=== PATIENT | female | born 1955 | race Two or more races ===

== ENCOUNTER 2024-06-11 15:00 | Inpatient (IN) | payer MEDICARE, OTHER ==
[~2024-06-11] VITALS: Ht 167.6 cm; Wt 101.2 kg
[2024-06-11] MEDS ORDERED: CHOL2000 PO (15:15)
[2024-06-11] MEDS ORDERED: ASCO500C18 PO (15:15)
[2024-06-11] MEDS ORDERED: LACT10SO58 PO (15:15)
[2024-06-11] MEDS ORDERED: HYDR-4209 PO (15:15)
[2024-06-11] MEDS ORDERED: MECL-159 PO (15:15)
[2024-06-11] MEDS ORDERED: ESOM40CA PO (15:15)
[2024-06-11] MEDS ORDERED: BUPR-319 PO (15:15)
[2024-06-11] MEDS ORDERED: MAG-151 PO (15:15)
[2024-06-11] MEDS ORDERED: OLAN20TA24 PO (15:15)
[2024-06-11] MEDS ORDERED: [UNRECOGNIZED DRUG - CODE] PO (15:15)
[2024-06-11] MEDS ORDERED: ACET325C7 PO (15:15)
[2024-06-11] MEDS ORDERED: IBUP-2314 PO (15:15)
[2024-06-11] MEDS ORDERED: CLOB15CR4 TP (15:15)
[2024-06-11] MEDS ORDERED: SENN-170 PO (15:15)
[2024-06-11] MEDS ORDERED: SERT100T PO (15:15)
[2024-06-11 16:01] LABS: BASOPHILS % (AUTO) 0.4 % (0.0-2.0); EOSINOPHILS # (AUTO) 0.2 K/uL (0.0-0.7); EOSINOPHILS % (AUTO) 3.3 % (0.0-7.0); HEMATOCRIT 38.9 % (31.2-41.9); HEMOGLOBIN 12.6 g/dL (10.9-14.3); LYMPHOCYTES # (AUTO) 0.7 K/uL (0.8-4.8); LYMPHOCYTES % (AUTO) 12.6 % (20.5-51.5); MEAN CORPUSCULAR HEMOGLOBIN 27.3 uug (24.7-32.8); MEAN CORPUSCULAR HGB CONC 32 g/dL (32.3-35.6); MEAN CORPUSCULAR VOLUME 84.1 fL (75.5-95.3); MONOCYTES # (AUTO) 0.5 K/uL (0.1-1.30); MONOCYTES % (AUTO) 8.7 % (0.0-11.0); NEUTROPHILS # (AUTO) 4.3 K/uL (1.8-8.9); PLATELET COUNT (AUTO) 174 K/uL (179-408); RED BLOOD CELL COUNT(AUTO) 4.63 MIL/uL (3.63-4.92); RED CELL DISTRIBUTION WIDTH 14.2 % (12.3-17.7); WHITE BLOOD COUNT (AUTO) 5.8 K/uL (3.8-11.8)
[2024-06-11 16:08] LABS: DIFFERENTIAL COMMENT 1
[2024-06-11 16:09] LABS: CARBON DIOXIDE 28 mmol/L (21-32); CHLORIDE 107 mmol/L (98-107); CREATININE 1.1 mg/dL (0.6-1.3); GLUCOSE 80 mg/dL (74-106); POTASSIUM 4.2 mmol/L (3.5-5.1); SODIUM SERUM 142 mmol/L (136-145); UREA NITROGEN, BLOOD 12 mg/dL (7-18)
[2024-06-11 16:14] LABS: ALANINE AMINOTRANSFERASE 43 U/L (14-59); ALBUMIN 3.5 g/dL (3.4-5.0); ALKALINE PHOSPHATASE 87 U/L (50-136); ASPARTATE AMINOTRANSFERASE 29 U/L (15-37); BILIRUBIN,DIRECT 0.2 mg/dL (0.0-0.2); BILIRUBIN,TOTAL 0.4 mg/dL (0.2-1.0); TOTAL PROTEIN, SERUM 7.4 g/dL (6.4-8.2)
[2024-06-11 16:17] LABS: ACETAMINOPHEN < 2.0 ug/mL (10-30); ETHANOL < 3 MG/DL (0-10)
[2024-06-11 17:15] LABS: *BILIRUBIN,URIN NEGATIVE (NEGATIVE); *BLOOD, URINE NEGATIVE (NEGATIVE); *COLOR,URINE YELLOW (YELLOW); *KETONES,URINE NEGATIVE (NEGATIVE); *PROTEIN,URINE NEGATIVE (NEGATIVE); LEUKOCYTE ESTERASE ,URINE 1+ (NEGATIVE); NITRITE, URINE POSITIVE (NEGATIVE); PH,URINE 7.5 (5.0-8.0); UGLUCOSE NEGATIVE (NEGATIVE)
[2024-06-11 17:29] LABS: *CLARITY,URINE SLIGHTLY CLOUDY (CLEAR)
[2024-06-11] MEDS ORDERED: Medication Not On Formulary EA (Acetaminophen (Tylenol) 650 MG) PO SCH (17:30)
[2024-06-11] MEDS ORDERED: HYDROCODONE/APAP 5-325MG TABLET PO PRN ×2 (17:30→21:15)
[2024-06-11 17:31] LABS: BACTERIA,URINE MODERATE /HPF (NONE SEEN); RBC,URINE NONE SEEN /HPF (0-3); SQUAMOUS EPITHELIAL CELL,UR FEW /HPF (NONE SEEN); URINE AMORPHOUS PHOSPHATES MANY /HPF; WBC,URINE 0-3 /HPF (0-3)
[2024-06-11 17:36] LABS: *AMPHETAMINE, URINE NEGATIVE (NEGATIVE); *BARBITURATE, URINE NEGATIVE (NEGATIVE); *BENZODIAZEPINE, URINE NEGATIVE (NEGATIVE); *CANNABINOID, URINE NEGATIVE (NEGATIVE); *COCCAINE, URINE NEGATIVE (NEGATIVE); *OPIATE, URINE NEGATIVE (NEGATIVE); *PHENCYCLIDINE SCREEN,URINE NEGATIVE (NEGATIVE); FENTANYL, URINE NEGATIVE (NEGATIVE)
[2024-06-11 21:15] VITALS: BP 152/73; TEMP 97.5; O2SAT 94
[2024-06-11] MEDS ORDERED: MAG HYDROX/AL HYDROX/SIMETH 30 ML LIQUID UDC PO PRN (22:15)
[2024-06-11] MEDS ORDERED: LORAZEPAM 1 MG TABLET PO PRN ×2 (22:15)
[2024-06-11] MEDS ORDERED: MAGNESIUM HYDROXIDE 30 ML LIQUID UDC PO PRN (22:15)
[2024-06-11] MEDS: BLOOD SUGAR DIAGNOSTIC 1 EACH STRIP VI ONE (22:22)
[2024-06-11] MEDS ORDERED: LACTULOSE 20 G/30 ML LIQUID UDC PO PRN (22:30)
[2024-06-11] MEDS: TEMAZEPAM 7.5 MG CAPSULE PO PRN (23:07)
[2024-06-12] MEDS: PANTOPRAZOLE SODIUM 40 MG TABLET.DR PO SCH (06:50)
[2024-06-12 07:58] VITALS: BP 130/53; TEMP 98; O2SAT 96
[2024-06-12] MEDS ORDERED: CHOLECALCIFEROL 1,000 UNIT TABLET PO SCH (09:00)
[2024-06-12] MEDS ORDERED: SENNOSIDES/DOCUSATE SODIUM TABLET PO SCH ×2 (09:00)
[2024-06-12] MEDS: ASCORBIC ACID 500 MG TABLET PO SCH (09:32)
[2024-06-12] MEDS ORDERED: SENN-18 PO (10:08)
[2024-06-12] MEDS: SENNOSIDES 1 TABLET PO SCH (10:26)
[2024-06-12] MEDS: NITROFURANTOIN/NITROFURAN MAC 100 MG CAPSULE PO SCH (13:53)
[2024-06-12 15:36] VITALS: BP 100/62; TEMP 98; O2SAT 95
[2024-06-12] MEDS: ACETAMINOPHEN 325 MG TABLET PO PRN (17:58)
[2024-06-12 20:00] VITALS: BP 143/77; TEMP 98.6; O2SAT 93
[2024-06-12] MEDS: OLANZAPINE ZYDIS 5 MG TAB.RAPDIS PO SCH (23:37)
[2024-06-13 08:14] VITALS: BP 137/58; TEMP 98; O2SAT 98
[2024-06-13] MEDS: buPROPion XL 150 MG TAB.SR.24H PO SCH (08:40)
[2024-06-13] MEDS: ENSURE ENLIVE (VAN) 240 ML LIQUID PO SCH (10:08)
[2024-06-13 16:34] VITALS: BP 140/91; TEMP 98; O2SAT 95
[2024-06-13 19:40] VITALS: BP 139/66; TEMP 98.6; O2SAT 96
[2024-06-14 08:49] VITALS: BP 138/78; TEMP 98.1; O2SAT 98
[2024-06-14] MEDS: GUAIFENESIN/DEXTROMETHORPHAN 5 ML UDC PO PRN (13:56)
[2024-06-14 16:08] VITALS: BP 154/86; TEMP 98.6; O2SAT 93
[2024-06-14 20:00] VITALS: BP 111/72; TEMP 98.7; O2SAT 91
[2024-06-15 08:16] VITALS: BP 155/96; TEMP 98
[2024-06-15 16:42] VITALS: BP 144/66; TEMP 98.6; O2SAT 96
[2024-06-15 20:00] VITALS: BP 121/75; TEMP 98; O2SAT 95
[2024-06-16 07:57] VITALS: BP 142/103; TEMP 97.6; O2SAT 98
[2024-06-16 08:09] LABS: BASOPHILS % (AUTO) 0.7 % (0.0-2.0); EOSINOPHILS # (AUTO) 0.3 K/uL (0.0-0.7); EOSINOPHILS % (AUTO) 5.8 % (0.0-7.0); HEMATOCRIT 41.8 % (31.2-41.9); HEMOGLOBIN 13.6 g/dL (10.9-14.3); LYMPHOCYTES # (AUTO) 0.9 K/uL (0.8-4.8); LYMPHOCYTES % (AUTO) 15.7 % (20.5-51.5); MEAN CORPUSCULAR HEMOGLOBIN 27.6 uug (24.7-32.8); MEAN CORPUSCULAR HGB CONC 33 g/dL (32.3-35.6); MEAN CORPUSCULAR VOLUME 84.6 fL (75.5-95.3); MONOCYTES # (AUTO) 0.5 K/uL (0.1-1.30); MONOCYTES % (AUTO) 9.3 % (0.0-11.0); NEUTROPHILS # (AUTO) 3.7 K/uL (1.8-8.9); NEUTROPHILS % (AUTO) 68.5 % (38.5-71.5); PLATELET COUNT (AUTO) 169 K/uL (179-408); RED BLOOD CELL COUNT(AUTO) 4.94 MIL/uL (3.63-4.92); RED CELL DISTRIBUTION WIDTH 14.3 % (12.3-17.7); WHITE BLOOD COUNT (AUTO) 5.5 K/uL (3.8-11.8)
[2024-06-16 08:22] LABS: CALCIUM 10.8 mg/dL (8.5-10.1); CARBON DIOXIDE 25 mmol/L (21-32); CHLORIDE 109 mmol/L (98-107); CREATININE 0.9 mg/dL (0.6-1.3); DIFFERENTIAL COMMENT 1; GLUCOSE 126 mg/dL (74-106); POTASSIUM 4.2 mmol/L (3.5-5.1); SODIUM SERUM 145 mmol/L (136-145); UREA NITROGEN, BLOOD 22 mg/dL (7-18)
[2024-06-16 16:00] VITALS: BP 139/71; TEMP 97.8; O2SAT 98
[2024-06-16 20:19] VITALS: BP 146/93; TEMP 98.1; O2SAT 95
[2024-06-17 04:09] LABS: CALCITRIOL VIT D,1,25 DIHYDROX 95.8 pg/mL (24.8-81.5)
[2024-06-17 08:00] VITALS: BP 121/53; TEMP 98.1; O2SAT 95
[2024-06-17] MEDS: buPROPion XL 150 MG TAB.SR.24H PO SCH (08:39)
[2024-06-17 16:04] VITALS: BP 131/70; TEMP 98.9; O2SAT 95
[2024-06-17 20:06] VITALS: BP 126/61; TEMP 98.1; O2SAT 95
[2024-06-18 08:03] VITALS: BP 151/88; TEMP 98; O2SAT 96
[2024-06-18 15:50] VITALS: BP 162/77; TEMP 98; O2SAT 94
[2024-06-18 19:40] VITALS: BP 124/87; TEMP 98.1; O2SAT 95
[2024-06-19 07:37] VITALS: BP 142/95; TEMP 98; O2SAT 94
[2024-06-19] MEDS: buPROPion XL 150 MG TAB.SR.24H PO SCH (08:10)
[2024-06-19 15:36] VITALS: BP 127/73; TEMP 98; O2SAT 98
[2024-06-19 20:00] VITALS: BP 116/79; TEMP 98.7; O2SAT 93
[2024-06-20] MEDS: TEMAZEPAM 7.5 MG CAPSULE PO PRN (01:15)
[2024-06-20 08:13] VITALS: BP 119/86; TEMP 98; O2SAT 94
[2024-06-20 16:06] VITALS: BP 115/84; TEMP 98; O2SAT 96
[2024-06-20 20:00] VITALS: BP 136/77; TEMP 98.8; O2SAT 94
[2024-06-21 08:03] VITALS: BP 120/76; TEMP 98.5; O2SAT 93
[2024-06-21] MEDS: ONDANSETRON HCL 4 MG TABLET PO PRN (10:08)
[2024-06-21 16:18] VITALS: BP 141/75; TEMP 97.9; O2SAT 95
[2024-06-22 08:50] VITALS: BP 143/65; TEMP 97.8; O2SAT 97
[2024-06-22 16:14] VITALS: BP 138/61; TEMP 98; O2SAT 98
[2024-06-22 19:56] VITALS: BP 101/66; TEMP 98.1; O2SAT 92
[2024-06-23 08:36] VITALS: BP 135/82; TEMP 98.5; O2SAT 100
[2024-06-23 16:36] VITALS: BP 128/80; TEMP 97.9; O2SAT 92
== END 2024-06-23 16:30 | DRG 885 ==
LOC: ER 15:00 → GPS 21:58
PROVIDERS: ADMIT Psychiatry & Neurology Psychiatry; ATTEND Nurse Practitioner Acute Care
DX: F31.81 Bipolar II disorder (principal); N39.0 Urinary tract infection, site not specified; F03.94 Unspecified dementia, unspecified severity, with anxiety; R45.851 Suicidal ideations; F03.93 Unspecified dementia, unspecified severity, with mood disturbance; E83.52 Hypercalcemia; J44.9 Chronic obstructive pulmonary disease, unspecified; E78.5 Hyperlipidemia, unspecified; K43.9 Ventral hernia without obstruction or gangrene; E66.01 Morbid (severe) obesity due to excess calories; Z71.3 Dietary counseling and surveillance; Z68.36 Body mass index [BMI] 36.0-36.9, adult; R26.89 Other abnormalities of gait and mobility; Z88.1 Allergy status to other antibiotic agents; Z88.0 Allergy status to penicillin; F25.9 Schizoaffective disorder, unspecified; K21.9 Gastro-esophageal reflux disease without esophagitis; E86.1 Hypovolemia; Z79.899 Other long term (current) drug therapy
CPT/HCPCS: 36415; 71045; 82330; 82652; 83970; 85025; 87086; A4606; A4663; G0480; Q0162